=== PATIENT | female | born 2000 | race Caucasian/White ===

== ENCOUNTER 2022-07-10 12:15 | Emergency (ER) | payer OTHER, SELFPAY ==
[2022-07-10 12:26] VITALS: BP 119/67; PULSE 87; TEMP 36.9; O2SAT 96; BMI 21.6
--- NOTE | 2022-07-10 12:35 | CRLHL7_ITS ---
For Patients: As a result of the Cures Act, medical imaging exams and procedure reports are released immediately into your electronic medical record. You may view this report before your referring provider. If you have questions, please contact your health care provider. Indication: TWISTED ANKLE PLAYING VOLLEYBALL Technique: Left ankle 3 views. Comparison: None. Findings: Bones: Alignment is normal. No fractures or bone lesions. Joint spaces: Unremarkable. Soft tissues: Mild soft tissue swelling overlying the lateral malleolus. Impression: Mild soft tissue swelling overlying the lateral malleolus without evidence of fracture or traumatic malalignment. Dictated by Harry Pratt MD @ 07/10/2022 1:21:58 PM (Electronically Signed)
--- NOTE | 2022-07-10 12:36 | ED.LOWEXIN ---
HPI - Extremity Injury (Lower) General Chief Complaint: Extremity Pain/Injury, Lower Stated Complaint: Needs xray left foot Time Seen by Provider: 07/10/22 12:15 History of Present Illness HPI Narrative: This 22-year-old female comes in with an injury to her left ankle. She was playing volleyball about a couple hours prior to arrival when she rolled her left ankle. She states that she did injure this ankle mildly a few years ago. She was able to ambulate gingerly after this current injury. She does not report any other injury. She has pain and swelling on the lateral aspect of the left ankle. Related Data Home Medications Medication Instructions Recorded Confirmed No Known Home Medications 07/10/22 07/10/22 Allergies Allergy/AdvReac Type Severity Reaction Status Date / Time No Known Drug Allergies Allergy Verified 07/10/22 12:30 Review of Systems Status of ROS: Reports: 10 or more systems reviewed and unremarkable except as noted in History and below Narrative: Constitutional: No fevers, no weight gain or loss. Eyes: No discharge. No vision changes. HENT: No congestion, no sore throat, no ear pain. Cardiovascular: No chest pain, no palpitations. Respiratory: No shortness of breath, no wheezes, no cough. Gastrointestinal: No abdominal pain, no vomiting, no diarrhea. Genitourinary: No dysuria, no hematuria. Musculoskeletal: Left ankle injury as described above. Skin: No rashes, no pruritis. Neurological: No dizziness, weakness, sensory change, speech change. Endo/Heme/Allergies: No bruising or bleeding. No polydipsia. Pysch: no suicidality, no anxiety, no insomnia. All other systems reviewed and are negative. PFSH PFS Social History Smoking Status: Never smoker Do you use any of these nicotine containing products: None Second hand tobacco smoke exposure: No How often do you have a drink containing alcohol: never How often do you have six or more drinks on one occasion: Never AUDIT-C Alcohol total score: 0 Non-prescribed substance use: denies use Exam Narrative: Exam Narrative: Constitutional: Well-developed, well-nourished, no acute distress. HEENT: Normocephalic, atraumatic. Neck: Normal range of motion. Nontender. Supple. Heart: Intact distal pulses. Lungs: No chest discomfort. No wheezes, rhonchi, or rales. Abdomen: Nontender. Back: Normal range of motion. Extremities: Left ankle has swelling over the lateral malleolus with associated tenderness. There is no joint instability or effusion. No tenderness when palpating the medial malleolus. Skin: Intact. No rash. Warm. No erythema or pallor. Neurologic: No altered sensation. No weakness. Alert and oriented. Psychiatric: No suicidality. No anxiety or depression. No insomnia. Nursing notes and vitals signs are reviewed. Const: Vital Signs, click to edit/add: Vital Signs - 24 hr 07/10/22 12:26 Temperature 98.5 F Pulse Rate [Right Pulse Oximeter] 87 Blood Pressure [Le ft Upper Arm] 119/67 Pulse Oximetry 96 Oxygen Delivery Me thod Room Air Course Vital Signs Vital signs: Initial Vital Signs Temperature 98.5 F 07/10/22 12:26 Temperature Source Temporal Artery Scan 07/10/22 12:26 Pulse Rate 87 07/10/22 12:26 Blood Pressure 119/67 07/10/22 12:26 Blood Pressure Mean 84 07/10/22 12:26 Blood Pressure Position Sitting 07/10/22 12:26 Pulse Oximetry 96 07/10/22 12:26 Oxygen Delivery Method 07/10/22 12:26 Vital Signs Temperature 98.5 F 07/10/22 12:26 Pulse Rate 87 07/10/22 12:26 Blood Pressure 119/67 07/10/22 12:26 Pulse Oximetry 96 07/10/22 12:26 Oxygen Delivery Method 07/10/22 12:26 Temperature 98.5 F 07/10/22 12:26 Pulse Rate 87 07/10/22 12:26 Blood Pressure 119/67 07/10/22 12:26 Pulse Oximetry 96 07/10/22 12:26 Oxygen Delivery Method 07/10/22 12:26 MDM - Extremity Injury (Lower) MDM Narrative Medical decision making narrative: This patient has swelling over the lateral aspect of her left ankle from a injury that occurred just prior to arrival when playing volleyball. X-ray imaging by my review shows no evidence of fracture or dislocation. The patient is Advil to ambulate on this leg and does have some crutches that can be used if needed. I encouraged early activity as there is no sign of fracture or instability or joint effusion. She can use [id number] medicines as needed and directed also for pain. Imaging Data XR L Ankle: My impression: No sign of fracture or dislocation. Discharge Plan Discharge Clinical Impression: Ankle sprain and strain Patient Disposition: Home, Self-Care Condition: Stable Instructions: Ankle Sprain (ED) Additional Instructions: Increase activity as tolerated. Use [id number] medicines as needed and directed. Prescriptions: No Action No Known Home Medications Follow Up/Referrals: Provider,Not a Local [Primary Care Provider] - Stand Alone Forms: [employer] Info Instructions
== END 2022-07-10 13:25 | disposition home or self-care (01) ==
PROVIDERS: Emergency Provider Emergency Medicine Emergency Medical Services
DX: S93.402A Sprain of unspecified ligament of left ankle, initial encounter (principal); Y93.68 Activity, volleyball (beach) (court); Y92.318 Other athletic court as the place of occurrence of the external cause
CPT/HCPCS: 73610; 99283; 99284